=== PATIENT | female | born 1955 | race Caucasian/White ===

== ENCOUNTER 2018-06-26 13:08 | Emergency (ER) | payer MEDICAID ==
[~2018-06-26] VITALS: Ht 149.9 cm; Wt 81.6 kg
[2018-06-26 13:26] VITALS: BP 137/71
[2018-06-26] MEDS: IBUPROFEN 400 MG TAB PO ONE (14:47)
[2018-06-26 15:06] VITALS: BP 137/60
== END 2018-06-26 15:10 | disposition home or self-care (01) ==
LOC: MED 13:08
DX: S16.1XXA Strain of muscle, fascia and tendon at neck level, initial encounter (principal); S39.012A Strain of muscle, fascia and tendon of lower back, initial encounter; F41.9 Anxiety disorder, unspecified; Z98.51 Tubal ligation status; V43.62XA Car passenger injured in collision with other type car in traffic accident, initial encounter; Y93.19 Activity, other involving water and watercraft; Y92.411 Interstate highway as the place of occurrence of the external cause; Y99.8 Other external cause status
CPT/HCPCS: 82948; 99284

== ENCOUNTER 2018-08-02 15:44 | Emergency (ER) | payer MEDICAID ==
[~2018-08-02] VITALS: Ht 149.9 cm; Wt 53.1 kg
[2018-08-02 16:00] VITALS: BP 179/71
--- NOTE | 2018-08-02 16:08 | NUR ---
PT AMBULATES TO BED 2, REPORT GIVEN TO FLACA MURILLO
--- NOTE | 2018-08-02 16:11 | NUR ---
62 YO F BIB SELF W/ C/O ABDOMINAL PAIN WITH NAUSEA X 1 MONTH, BLACK STOOL X 3 WKS; DENIES V/D. BOWEL SOUNDS ACTIVE X 4, ABD SOFT, NON-TENDER. AAOX4, GCS 15, CMS INTACT, RR EVEN AND UNLABORED, LUNGS BL CLEAR. AMBULATORY W/ STEADY GAIT. ER MD NOTIFIED OF PT STATUS. PT NEEDS MET. SAFETY PRECAUTIONS IN PLACE. WILL CONTINUE TO MONITOR.
--- NOTE | 2018-08-02 16:18 | NUR ---
Patient being evaluated by physician at bedside.
--- NOTE | 2018-08-02 16:19 | NUR ---
Female Park Maintenance Technician SMITH THAYER accompanied DR. AMEZCUA FOR female patient for Rectal Exam.
[2018-08-02 17:07] LABS: BASOPHILS % (AUTO) 0.6 % (0.0-2.0); EOSINOPHILS # (AUTO) 0.1 K/uL (0-0.4); HEMATOCRIT 39.5 % (36-48); HEMOGLOBIN 12.8 g/dL (12.0-16.0); LYMPHOCYTES # (AUTO) 2.3 K/uL (2.5-16.5); LYMPHOCYTES % (AUTO) 40.2 % (20.5-51.1); MEAN CORPUSCULAR HEMOGLOBIN 30 pg (27-31); MEAN CORPUSCULAR HGB CONC 32 g/dL (33-37); MEAN CORPUSCULAR VOLUME 91.6 fL (80-94); MONOCYTES # (AUTO) 0.7 K/uL (0.8-1.0); MONOCYTES % (AUTO) 12.8 % (1.7-9.3); NEUTROPHILS # (AUTO) 2.6 K/uL (1.8-7.7); NEUTROPHILS % (AUTO) 44.4 % (42.2-75.2); PLATELET COUNT (AUTO) 221 K/uL (140-450); RED BLOOD CELL COUNT(AUTO) 4.31 MIL/uL (4.20-5.40); RED CELL DISTRIBUTION WIDTH 13.5 % (11.6-13.7); WHITE BLOOD COUNT (AUTO) 5.8 K/uL (4.8-10.8)
[2018-08-02 17:50] LABS: ALBUMIN 3.9 g/dL (3.4-5.0); ANION GAP 16.9 (8-16); CARBON DIOXIDE 27.3 mmol/L (21-32); POTASSIUM 4.2 mmol/L (3.5-5.1); TOTAL BILIRUBIN 0.6 mg/dL (0.0-1.0)
[2018-08-02 18:12] VITALS: BP 165/75
[2018-08-02 18:21] LABS: PROTHROMBIN TIME 10.2 secs (10.8-13.4)
== END 2018-08-02 18:15 | disposition home or self-care (01) ==
LOC: MED 15:44
DX: R10.84 Generalized abdominal pain (principal); R11.0 Nausea; R42 Dizziness and giddiness; E11.9 Type 2 diabetes mellitus without complications; I10 Essential (primary) hypertension
CPT/HCPCS: 36415; 80053; 81002; 82948; 83690; 85025; 85610; 85730; 86886; 86900; 86901; 93005; 99285

== ENCOUNTER 2018-08-13 22:46 | Emergency (ER) | payer MEDICAID ==
[~2018-08-13] VITALS: Ht 144.8 cm; Wt 52.6 kg
[2018-08-13 22:50] VITALS: BP 133/68
[2018-08-14] MEDS ORDERED: ASPIRIN 325 MG TAB PO ONE (00:05)
[2018-08-14] MEDS ORDERED: ACETAMINOPHEN EXTRA STRENGTH 500 MG TAB PO ONE (00:05)
[2018-08-14 00:28] LABS: BASOPHILS % (AUTO) 0.6 % (0.0-2.0); EOSINOPHILS # (AUTO) 0.1 K/uL (0-0.4); EOSINOPHILS % (AUTO) 1.8 % (0.0-4.0); HEMATOCRIT 40.4 % (36-48); HEMOGLOBIN 13.3 g/dL (12.0-16.0); LYMPHOCYTES # (AUTO) 2.5 K/uL (2.5-16.5); LYMPHOCYTES % (AUTO) 35.4 % (20.5-51.1); MEAN CORPUSCULAR HEMOGLOBIN 30 pg (27-31); MEAN CORPUSCULAR HGB CONC 33 g/dL (33-37); MEAN CORPUSCULAR VOLUME 90.9 fL (80-94); MONOCYTES # (AUTO) 0.6 K/uL (0.8-1.0); NEUTROPHILS # (AUTO) 3.8 K/uL (1.8-7.7); NEUTROPHILS % (AUTO) 54.2 % (42.2-75.2); PLATELET COUNT (AUTO) 238 K/uL (140-450); RED BLOOD CELL COUNT(AUTO) 4.44 MIL/uL (4.20-5.40); RED CELL DISTRIBUTION WIDTH 13.4 % (11.6-13.7); WHITE BLOOD COUNT (AUTO) 7.1 K/uL (4.8-10.8)
[2018-08-14 00:47] LABS: ALBUMIN 3.9 g/dL (3.4-5.0); ANION GAP 13.5 (8-16); CARBON DIOXIDE 27.7 mmol/L (21-32); CREATININE 0.8 mg/dL (0.6-1.3); POTASSIUM 4.2 mmol/L (3.5-5.1); TOTAL BILIRUBIN 0.3 mg/dL (0.0-1.0)
[2018-08-14 02:27] VITALS: BP 132/58
== END 2018-08-14 02:26 | disposition home or self-care (01) ==
LOC: MED 22:46
DX: R51 Headache (principal); R07.9 Chest pain, unspecified; E11.9 Type 2 diabetes mellitus without complications; I10 Essential (primary) hypertension
CPT/HCPCS: 36415; 71045; 80053; 82550; 82553; 83690; 84484; 85025; 93005; 99285; Q0092

== ENCOUNTER 2019-09-24 01:17 | Observation (INO) | payer MEDICAID ==
[~2019-09-24] VITALS: Ht 149.9 cm; Wt 54.9 kg
[2019-09-24 01:21] VITALS: BP 172/72
--- NOTE | 2019-09-24 01:21 | NUR ---
PT TAKEN TO BED 8
--- NOTE | 2019-09-24 01:25 | NUR ---
63 Y/O F PRESENTS TO ED WITH C/O CHEST PAIN X0700 ON 09/23. PT REPORTS HAVING THE APIN FOR MONTHS BUT WORSENED YESTERDAY. PT SELF MEDICATED WITH ASPRIN AT 1200 ON 09/23. 8/10 PRESSURE PAIN RADIATING TO HEAD. PAIN IS AGGRAVATED BY DEEP BREATHES WITH NO ALLEVIATING FACTORS. PT 100% ON RA. RR EVEN AND UNLABORED. PT ATTACHED TO MONITORING SYSTEM. BEDRAIL X1 UP. WILL CONTINUE TO MONITOR.
--- NOTE | 2019-09-24 01:43 | NUR ---
Dr. Merrill examining patient.
[2019-09-24] MEDS ORDERED: ASPIRIN 325 MG TAB PO ONE (01:45)
[2019-09-24] MEDS ORDERED: MORPHINE SULFATE 4 MG/ML SYR IVP ONE (01:45)
[2019-09-24] MEDS ORDERED: NITROGLYCERIN 2% 1 GM PKT TP ONE (01:45)
--- NOTE | 2019-09-24 01:53 | NUR ---
BLOOD DRAWN AND HANDED TO PHLEB.
--- NOTE | 2019-09-24 02:00 | NUR ---
DR. IRIZARRY GAVE PERMISSION FOR CT TO BE COMPLETED WITHOUT LABORATORY RESULTS.
--- NOTE | 2019-09-24 02:04 | NUR ---
PT SIGNED CONSENT FOR CT WITH CONTRAST.
[2019-09-24 02:11] LABS: BASOPHILS # (AUTO) 0.1 K/uL (0.00-0.22); EOSINOPHILS # (AUTO) 0.1 K/uL (0-0.4); EOSINOPHILS % (AUTO) 1.4 % (0.0-4.0); HEMATOCRIT 40.2 % (36-48); HEMOGLOBIN 13.2 g/dL (12.0-16.0); LYMPHOCYTES % (AUTO) 26.4 % (20.5-51.1); MEAN CORPUSCULAR HEMOGLOBIN 30 pg (27-31); MEAN CORPUSCULAR HGB CONC 33 g/dL (33-37); MEAN CORPUSCULAR VOLUME 91.4 fL (80-94); MONOCYTES # (AUTO) 0.6 K/uL (0.8-1.0); MONOCYTES % (AUTO) 7.4 % (1.7-9.3); NEUTROPHILS # (AUTO) 4.8 K/uL (1.8-7.7); NEUTROPHILS % (AUTO) 62.8 % (42.2-75.2); PLATELET COUNT (AUTO) 271 K/uL (140-450); RED CELL DISTRIBUTION WIDTH 13.3 % (11.6-13.7); WHITE BLOOD COUNT (AUTO) 7.6 K/uL (4.8-10.8)
[2019-09-24 02:13] LABS: ANION GAP 13.1 (8-16); CARBON DIOXIDE 27.4 mmol/L (21-32); CREATININE 1.1 mg/dL (0.6-1.3); POTASSIUM 3.5 mmol/L (3.5-5.1)
[2019-09-24 02:17] LABS: CHOL/HDL RATIO 2.5 (1-4.5)
[2019-09-24 02:19] LABS: ALBUMIN 4.3 g/dL (3.4-5.0); TOTAL BILIRUBIN 0.3 mg/dL (0.0-1.0)
[2019-09-24 02:26] LABS: CREATINE KINASE MB 2.6 ng/mL (0-3.6)
--- NOTE | 2019-09-24 02:28 | NUR ---
FAMILY FRIEND AT BEDSIDE.
--- NOTE | 2019-09-24 03:02 | NUR ---
PT REPORTS DECREASED CHEST PAIN, 1/10.
--- NOTE | 2019-09-24 03:10 | NUR ---
PT BP AT 155/67, DR. IRIZARRY MADE AWARE.
--- NOTE | 2019-09-24 03:13 | NUR ---
PT TAKEN TO CT VIA WHEELCHAIR.
--- NOTE | 2019-09-24 03:20 | NUR ---
PT TAKEN TO CT
[2019-09-24] MEDS ORDERED: hydrALAZINE 20 MG/ML VIAL IVP ONE (03:25)
--- NOTE | 2019-09-24 03:49 | NUR ---
PT RETURN FROM CT
--- NOTE | 2019-09-24 04:10 | NUR ---
PT BP DECREASED TO 136/65 WTIH HR OF 82[address]. IRIZARRY NOTIFIED.
--- NOTE | 2019-09-24 04:40 | NUR ---
PT REPORTS RETURN OF CP AND FEELINGS OF NAUSEA. DR. IRIZARRY NOTIFIED.
[2019-09-24] MEDS ORDERED: ONDANSETRON 4 MG/2 ML VIAL IVP ONE (04:50)
[2019-09-24] MEDS ORDERED: GLIP5TER PO (05:15)
[2019-09-24] MEDS ORDERED: ASPI-1884 PO (05:15)
[2019-09-24] MEDS ORDERED: FENO134C2 PO ×2 (05:15)
[2019-09-24] MEDS ORDERED: [UNRECOGNIZED DRUG - CODE] PO (05:15)
[2019-09-24] MEDS ORDERED: SIMV10TA1 PO (05:15)
[2019-09-24] MEDS ORDERED: LISI-424 PO (05:15)
[2019-09-24] MEDS ORDERED: METF1000 PO (05:15)
--- NOTE | 2019-09-24 05:55 | NUR ---
PT SEEN WITH EYES CLOSED. VISIBLE CHEST RISE AND FALL NOTED. FAMILY AT BEDSIDE. WILL CONTINUE TO MONITOR.
[2019-09-24] MEDS ORDERED: hydrALAZINE 20 MG/ML VIAL IVP PRN (06:05)
[2019-09-24] MEDS ORDERED: DEXTROSE 50% 50 ML SYR IVP PRN (06:05)
[2019-09-24] MEDS ORDERED: MORPHINE SULFATE 4 MG/ML SYR IVP PRN (06:10)
[2019-09-24] MEDS ORDERED: ALBUTEROL 0.083% 2.5 MG/3 ML NEBU INH PRN (06:10)
[2019-09-24] MEDS ORDERED: HYDROcodone/APAP 5/325 MG 1 TAB TAB PO PRN (06:10)
[2019-09-24] MEDS ORDERED: ACETAMINOPHEN 325 MG TAB PO PRN (06:10)
[2019-09-24] MEDS ORDERED: ONDANSETRON 4 MG/2 ML VIAL IVP PRN (06:10)
--- NOTE | 2019-09-24 06:30 | NUR ---
RECEIVED REPORT FROM ED NURSE DIANA. PATIENT ALERT AND ORIENTED X4. NO APPARENT DISTRESS NOTED. WITH IV ON RIGHT AC 20G ON SALINE LOCK. ORIENTED TO ENVIRONMENT, HOSPITAL ROUTINE AND CALL LIGHT. REVIEWED PLAN OF CARE. VERBALIZED UNDERSTANDING. SAFETY MEASURES IN PLACE. BED ON LOW POSITION. V/S:108/55, 71/ 97.6, 95% AND 18. WILL CONTINUE TO MONITOR. Addendum: 09/24/19 at 0737 by Gaurav Figueroa RN WILL ENDORSE TO AM SHIFT NURSE FOR CONTINUITY OF CARE.
--- NOTE | 2019-09-24 06:35 | NUR ---
Patient will be admitted to care of Dr. Beckman. Admited to [facility]. Will go to room 125A. Belongings list completed. VSS at time of transport. Report to FLACA Nolasco. Transfer of care at this time.
--- NOTE | 2019-09-24 07:10 | NUR ---
RECEIVED REPORT FROM NIGHT NURSE. PT IS IN STABLE CONDITION. PT AWAKE AND ALERT, GERMAN SPEAKING. WILL REVIEW ADMIT ORDERS.
[2019-09-24 07:30] VITALS: BP 112/49
[2019-09-24] MEDS: BLOOD GLUCOSE MONITORING 1 DEV DEV FS SCH ×4 (07:55→20:50)
--- NOTE | 2019-09-24 08:30 | NUR ---
PATIENT AMBULATED TO THE RESTROOM WITH STEADY GAIT.
[2019-09-24] MEDS: glipiZIDE ER 5 MG TABER PO SCH (09:00)
[2019-09-24] MEDS ORDERED: NIACIN 500 MG TAB PO SCH (09:00)
[2019-09-24] MEDS: INSULIN LISPRO SLIDING SCALE 100 UNITS/ML VIAL SUBQ PRN ×2 (09:09→20:53)
[2019-09-24] MEDS: FENOFIBRATE 48 MG TAB PO SCH (09:11)
--- NOTE | 2019-09-24 09:55 | NUR ---
PAGED DR. HODGES IN REGARDS TO PATIENT COMPLAINING OF BURNING AND ITCHING AT THIS TIME. AWAITING FOR CALL BACK.
[2019-09-24 10:00] VITALS: BP 135/59
--- NOTE | 2019-09-24 10:00 | NUR ---
DR. HODGES CALL BACK NOTIFIED HIM OF PT COMPLAINTS OF BURNING AND ITCHING. ALSO THAT PATIENT RECEIVED NIACIN 1,000MG ORDERED. RECEIVED ORDER TO DC NIACIN AND GIVE BENADRYL 50MG PO Q6H PRN. PT VS IS STABLE. VS 135/59, 65, 98.1, 100% RA, RESP 16. WILL MONITOR PATIENT.
[2019-09-24] MEDS ORDERED: diphenhydrAMINE 50 MG CAP PO PRN (10:05)
[2019-09-24] MEDS ORDERED: diphenhydrAMINE 50 MG CAP PO ONE (10:28)
[2019-09-24 12:00] VITALS: BP 103/45
--- NOTE | 2019-09-24 12:00 | NUR ---
PT IN BED, SLEEPING COMFORTABLY. PT EASILY AROUSABLE, AWAKE AND VERBALLY RESPONSIVE. RESPIRATION EVEN AND UNLABORED. NO S/S OF DISTRESS NOTED. CALL LIGHT WITHIN REACH.
--- NOTE | 2019-09-24 13:59 | NUR ---
PATIENT IS IN BED ASLEEP, EASILY AROUSABLE. PATIENT DENIES SOB OR PAIN AT THIS TIME. NO S/S OF DISTRESS NOTED. CALL LIGHT WITHIN REACH.
[2019-09-24 16:00] VITALS: BP 95/49
--- NOTE | 2019-09-24 16:00 | NUR ---
PATIENT IS IN BED ASLEEP, EASILY AROUSABLE. ASSESSED PATIENT AND VITAL SIGNS. PATIENT DENIES SOB OR PAIN AT THIS TIME. NO S/S OF DISTRESS NOTED. SAFETY MEASURES IN PLACE. IV INTACT AND PATENT TO RIGHT AC 20G SALINE LOCK. CALL LIGHT WITHIN REACH.
--- NOTE | 2019-09-24 17:42 | NUR ---
PATIENT IS SITTING UP EATING DINNER. DENIES ANY PAIN OR DISCOMFORT AT THIS TIME. CALL LIGHT WITHIN REACH. IV INTACT AND PATENT TO RIGHT AC SALINE LOCK.
--- NOTE | 2019-09-24 18:43 | NUR ---
PT IN STABLE CONDITION. WILL ENDORSE TO NIGHT NURSE FOR CONTINUITY OF CARE.
--- NOTE | 2019-09-24 19:14 | NUR ---
BEDSIDE REPORT GIVEN TO NIGHT NURSE. PATIENT IS IN STABLE CONDITION.
--- NOTE | 2019-09-24 19:20 | NUR ---
RECEIVED FROM AM RN IN BED SLEEPING. WOKE UP EASILY WHEN CALLED BY NAME. CARE PLANS FOR THE NIGHT DISCUSSED WITH HER AND CALL LIGHT BESIDE HER FOR EASY ACCESS AND ENCOURAGED TO USE IT FOR ANY HELP SHE MAY NEED OR IF IN PAIN. TELEMETRY MONITORING. DX. OF CHEST PAIN AND AND HTN. IVF SITE INTACT AND NO INFILTRATION NOTED.
[2019-09-24 20:39] VITALS: BP 98/50
[2019-09-24] MEDS: SIMVASTATIN 10 MG TAB PO SCH ×3 (20:50→23:53)
--- NOTE | 2019-09-24 21:04 | NUR ---
BLOOD SUGAR 151 PER FINGERSTICK. REFUSED HUMALOG INSULIN 2 UNITS. NONE ADMINISTERED. A/O X 4.
--- NOTE | 2019-09-24 21:06 | NUR ---
PT. ALSO REFUSED SIMVASTATIN P.O. "NO" I AM ALLERGIC TO IT".
--- NOTE | 2019-09-24 23:45 | NUR ---
ABLE TO TALK WITH MD GONZALEZ CONTRACT LEAD FOR MD HODGES AND INFORM HIM ABOUT PT. REFUSING HUMALOG AND SIMVASTATIN. "OK" NO FURTHER ORDERS GIVEN BY .
[2019-09-25] VITALS: BP 92/50
--- NOTE | 2019-09-25 02:41 | NUR ---
SLEEPING AT THIS TIME. NO COMPLAINTS DONE.
[2019-09-25 04:00] VITALS: BP 112/50
[2019-09-25 06:12] LABS: BASOPHILS % (AUTO) 0.6 % (0.0-2.0); EOSINOPHILS # (AUTO) 0.2 K/uL (0-0.4); EOSINOPHILS % (AUTO) 3.5 % (0.0-4.0); HEMATOCRIT 35.4 % (36-48); HEMOGLOBIN 11.7 g/dL (12.0-16.0); LYMPHOCYTES # (AUTO) 1.8 K/uL (2.5-16.5); MEAN CORPUSCULAR HEMOGLOBIN 30 pg (27-31); MEAN CORPUSCULAR HGB CONC 33 g/dL (33-37); MEAN CORPUSCULAR VOLUME 91.9 fL (80-94); MONOCYTES # (AUTO) 0.2 K/uL (0.8-1.0); MONOCYTES % (AUTO) 5.1 % (1.7-9.3); NEUTROPHILS # (AUTO) 2.2 K/uL (1.8-7.7); NEUTROPHILS % (AUTO) 49.8 % (42.2-75.2); PLATELET COUNT (AUTO) 241 K/uL (140-450); RED BLOOD CELL COUNT(AUTO) 3.85 MIL/uL (4.20-5.40); RED CELL DISTRIBUTION WIDTH 13.4 % (11.6-13.7); WHITE BLOOD COUNT (AUTO) 4.3 K/uL (4.8-10.8)
[2019-09-25] MEDS: BLOOD GLUCOSE MONITORING 1 DEV DEV FS SCH ×3 (06:20→17:15)
--- NOTE | 2019-09-25 06:25 | NUR ---
SLEPT WELL THIS SHIFT. BLOOD SUGAR CHECK PER FINGER STICK IS 89. NO INSULIN ADMINISTERED. ABLE TO VERBALIZE NEEDS WELL IN [place]. CALL LIGHT WITH IN REACH . ENCOURAGED TO CALL FOR A [place] HELP SHE MAY NEED OR IF IN PAIN. ROM X 4. A/O X 4. TELEMETRY MONITORING. NO CHEST PAIN COMPLAINT DONE THIS SHIFT.
[2019-09-25 06:36] LABS: ANION GAP 13.3 (8-16); CARBON DIOXIDE 27.3 mmol/L (21-32); CREATININE 0.8 mg/dL (0.6-1.3); POTASSIUM 3.6 mmol/L (3.5-5.1)
[2019-09-25 06:38] LABS: MAGNESIUM 1.7 mg/dL (1.8-2.4); PHOSPHORUS 3.6 mg/dL (2.5-4.9)
--- NOTE | 2019-09-25 07:10 | NUR ---
GIVEN BEDSIDE REPORT FROM FOREST PRODUCTS GATHERER NURSE. PT WAS RESTING IN BED, EASILY AROUSABLE. PT IS AAOX4. SKIN IS INTACT, IV IS CLEAN, INTACT. BREATHING IS EVEN AND UNLABORED, PT IS ON RA. NO SIGNS OF DISTRESS NOTED AT THIS TIME. DENIES PAIN. TELE MONITOR ATTACHED. SAFETY MEASURES ASSESSED, BED IN LOW POSITION AND CALL LIGHT WITHIN REACH. EDUCATED PT TO USE CALL LIGHT FOR ANY ASSISTANCE. PT VERBALIZED UNDERSTANDING.
[2019-09-25 08:00] VITALS: BP 109/62
[2019-09-25] MEDS: glipiZIDE ER 5 MG TABER PO SCH (08:11)
[2019-09-25] MEDS: FENOFIBRATE 48 MG TAB PO SCH (08:14)
--- NOTE | 2019-09-25 08:54 | NUR ---
PATIENT HAS BEEN SCREENED AND CATEGORIZED HIGH NUTRITION RISK. PATIENT WILL BE SEEN WITHIN 5-7 DAYS OF ADMISSION. 09/29/19-10/01/[address]
--- NOTE | 2019-09-25 08:59 | NUR ---
PATIENT HAS BEEN SCREENED AND CATEGORIZED LOW NUTRITION RISK. PATIENT WILL BE SEEN WITHIN 5-7 DAYS OF ADMISSION. 09/29/19-10/01/[address] DISREGARD PREVIOUS NOTE. INCORRECT PRIORITIZATION
[2019-09-25] MEDS ORDERED: ASPIRIN 81 MG TAB.CHEW PO SCH (09:00)
[2019-09-25] MEDS ORDERED: LISINOPRIL 10 MG TAB PO SCH (09:00)
--- NOTE | 2019-09-25 09:05 | NUR ---
PT RESTING IN BED. NO SIGNS OF DISTRESS NOTED AT THIS TIME. BREATHING IS EVEN AND UNLABORED. TELE MONITOR ATTACHED. BED IN LOW POSITION AND CALL LIGHT WITHIN REACH. REMINDED PT TO USE CALL LIGHT FOR ANY ASSISTANCE. WILL CONTINUE TO MONITOR.
--- NOTE | 2019-09-25 10:30 | NUR ---
DISCHARGE PLANNIN63 YEAR OLD FEMALE PATIENT FROM HOME, WHO CAME IN DUE TO CHEST PAIN. PAST MEDICAL AND SURGICAL HISTORY INCLUDE HTN, HYPERLIPIDEMIA, DM, C SECTION AND TUBAL LIGATION. CURRENT MEDS INCLUDE WBC 4.3, H/H 11.7/35.4 AND MAG 1.7. [address] ANGIO CHEST SHOWED NO PE AND ACUTE CARDIOPULMONARY DISEASE. NO CONSULTS AT THIS TIME. DC PLAN TO GO BACK HOME WHEN STABLE. Addendum: 09/25/19 at 1445 by Camille Jimenez CM RECEIVED AN ORDER FOR HOME HEALTH FOR HOME SAFETY EVAL AND BP MONITORING. CONTACTED [facility] AT [phone] OPT 2, ABLE TO SPEAK TO REGARDING HOME HEALTH ORDER. SHE STATED THE CM IN CHARGE IS [employer] [phone]. CONTACTED THE PROVIDED NUMBER, PER [employer] TO GO AHEAD AND FAX OVER THE ORDER TO [phone]. SHE ALSO STATED THEY [facility] . SHE ALSO STATED SHE SPOKE WITH THE PATIENT AND TO [facility] ALREADY. PRIMARY RN JOSE R MADE AWARE. Addendum: 09/25/19 at 1607 by Camille Jimenez CM CONTACTED [facility] AT [phone], ABLE TO SPEAK TO [employer] PRESS TENDER REGARDING REFERRAL. SHE STATED SHE DID NOT RECEIVE ANY REFERRAL FROM THE INSURANCE. SHE REQUESTED TO FAX REFERRAL TO [phone] IN CASE INSURANCE IS NOT ABLE TO. SHE ALSO CONFIRMED THAT THEY ARE CONTRACTED WITH [facility]. [facility] WILL FOLLOW UP. Addendum: 09/25/19 at 1612 by Camille Jimenez CM CONTACTED [facility] AT [phone], ABLE TO SPEAK TO RONEL TO CONFIRM ACCEPTANCE OF THE ORDER SENT. SHE STATED SHE CANNOT CONFIRM AT THIS TIME AND TO CALL BACK TOMORROW MORNING TO FOLLOW UP. Addendum: 09/26/19 at 0830 by Camille Jimenez CM DISREGARD LAST ENTRY, CHARTED ON WRONG PATIENT. Addendum: 09/26/19 at 1104 by Camille Jimenez CM PER [employer] OF [facility], SHE WILL FOLLOW UP WITH [facility]. SHE ALSO STATED SHE REACHED OUT TO [employer] YESTERDAY AND THEY DECLINE THE PATIENT DUE TO PATIENT IS NOT SENIOR. SHE SAID SHE WILL REACH OUT TO THEM AGAIN TODAY. Addendum: 09/29/19 at 1055 by Camille Jimenez CM CONTACTED [facility], NOT IN TODAY. ABLE TO SPEAK TO [facility]RY[facility] HAILE CHIEF OPERATOR SYNTHESIS TODAY. SHE STATED PATIENT DOES NOT QUALIFY FOR HOME HEALTH, PATIENT IS NOT HOMEBOUND, PATIENT IS WORKING.
--- NOTE | 2019-09-25 11:10 | NUR ---
PT LAYING IN BED. NO SIGNS OF DISTRESS NOTED. BREATHING IS EVEN AND UNLABORED. BED IN LOW POSITION AND CALL LIGHT WITHIN REACH. WILL CONTINUE TO MONITOR.
--- NOTE | 2019-09-25 11:41 | NUR ---
Metalworking Specialist Note: Patient requested to receive communion from [facility]. Patient speaks Portuguese. I called [facility] , recording states office is closed from 09/23/19-10/01/19. I called [facility] , no answer. [facility] called [facility] , recording states office is closed from 09/22/19-10/01/19. I called and spoke with Courtney from [facility] ([place], [place]) , Courtney requested to speak with patient. Per Courtney, she speaks Portuguese. I provided patient with the phone number of [facility] and explained to her Courtney would like to speak with her, patient's RN Terry made aware.
[2019-09-25 12:00] VITALS: BP 141/63
[2019-09-25] MEDS ORDERED: MAG SULF 2000 MG/WATER PREMIX 50 ML IV SCH (12:00)
--- NOTE | 2019-09-25 12:15 | NUR ---
MAGNESIUM SULFATE 2 GRAM IN 50 ML STERILE WATER ADMINISTERED THROUGH IV AT 25 ML/HR.
--- NOTE | 2019-09-25 14:15 | NUR ---
MAGNESIUM SULFATE INFUSION FINISHED AT THIS TIME. Addendum: 09/25/19 at 1853 by Melonie Mooney RN RN 50 ML INFUSED
[2019-09-25] MEDS ORDERED: NAPROXEN 500 MG TAB PO SCH (14:35)
[2019-09-25] MEDS ORDERED: IBUP-2213 PO (14:38)
[2019-09-25] MEDS ORDERED: LISI10TA11 PO (14:38)
[2019-09-25] MEDS ORDERED: [UNRECOGNIZED DRUG - CODE] PO (14:38)
[2019-09-25] MEDS ORDERED: HYDR-5122 PO (14:39)
[2019-09-25] MEDS ORDERED: FAMO-90 PO (14:44)
[2019-09-25] MEDS ORDERED: IBUPROFEN 600 MG TAB PO SCH ×2 (14:44→21:00)
[2019-09-25 15:41] VITALS: BP 141/63
[2019-09-25 16:00] VITALS: BP 124/52
--- NOTE | 2019-09-25 17:40 | NUR ---
DISCHARGE INSTRUCTIONS GIVEN IN YI BY MEHNAZ THAYER. MEDICATION TEACHING DONE. PT VERBALIZED UNDERSTANDING. RX PROVIDED. PT IS AWARE TO F/U WITH PCP WITHIN 2 WKS. LEFT A MESSAGE FOR JOSELYN RICE TO F/U ON HOME HEALTH FOR BP CHECK. PT IS WAITING FOR FAMILY TO FOREST RANGER TECHNICIAN.
--- NOTE | 2019-09-25 19:11 | NUR ---
GAVE BEDSIDE REPORT TO HEALTH EDUCATION TEACHER RN. PT IN STABLE CONDITION.
== END 2019-09-25 18:20 | disposition home health service (06) ==
LOC: MED 01:17 → MMU 06:10
PROVIDERS: ADMIT Internal Medicine Pulmonary Disease; ATTEND Internal Medicine Pulmonary Disease
DX: R07.89 Other chest pain (principal); I16.0 Hypertensive urgency; E11.9 Type 2 diabetes mellitus without complications; E78.5 Hyperlipidemia, unspecified; Z79.899 Other long term (current) drug therapy
CPT/HCPCS: 36415; 71045; 71275; 80048; 80053; 80061; 82550; 82553; 82948; 83036; 83735; 83880; 84100; 84484; 85025; 85379; 85651; 86140; 87081; 93005; 93307; 94760; 96365; 96366; 96372; 96375; 99285; G0378; J0360; J2270; J2405; J3475; Q0092; Q0163; Q9967; 96374

== ENCOUNTER 2020-09-28 10:27 | Emergency (ER) | payer MEDICAID ==
[~2020-09-28] VITALS: Ht 149.9 cm; Wt 77.1 kg
[~2020-09-28 10:27] MED LIST: ASPI-1884 PO; FAMO-90 PO; FENO134C2 PO; GLIP5TER PO; HYDR-5122 PO; IBUP-2213 PO; LISI10TA11 PO; METF1000 PO; SIMV10TA1 PO; [UNRECOGNIZED DRUG - CODE] PO
[2020-09-28 10:37] VITALS: BP 158/86
--- NOTE | 2020-09-28 10:41 | NUR ---
C/O FEVER, HEADACHE 4/10 X 4 DAYS. ORAL TEMP 99.2 AT THIS TIME. TOOK TYLENOL AT 8 AM TODAY. PMH:DM, HTN, ASTHMA
--- NOTE | 2020-09-28 10:42 | NUR ---
TENT2
[2020-09-28 12:29] LABS: BASOPHILS % (AUTO) 0.6 % (0.0-2.0); HEMATOCRIT 42.4 % (36-48); HEMOGLOBIN 14.4 g/dL (12.0-16.0); LYMPHOCYTES % (AUTO) 17.5 % (20.5-51.1); MEAN CORPUSCULAR HEMOGLOBIN 31 pg (27-31); MEAN CORPUSCULAR HGB CONC 34 g/dL (33-37); MEAN CORPUSCULAR VOLUME 90.2 fL (80-94); MONOCYTES # (AUTO) 0.5 K/uL (0.8-1.0); MONOCYTES % (AUTO) 9.4 % (1.7-9.3); NEUTROPHILS % (AUTO) 72.5 % (42.2-75.2); PLATELET COUNT (AUTO) 188 K/uL (140-450); RED CELL DISTRIBUTION WIDTH 13.3 % (11.6-13.7); WHITE BLOOD COUNT (AUTO) 5.5 K/uL (4.8-10.8)
[2020-09-28 12:47] LABS: ALBUMIN 4.1 g/dL (3.4-5.0); CARBON DIOXIDE 24.3 mmol/L (21-32); CREATININE 0.6 mg/dL (0.6-1.3); POTASSIUM 4.3 mmol/L (3.5-5.1); TOTAL BILIRUBIN 0.3 mg/dL (0.0-1.0)
[2020-09-28 13:32] VITALS: BP 140/70
--- NOTE | 2020-09-28 13:32 | NUR ---
PT REQUESTING A COVID TEST PRIOR TO DISCHARGE. DR. DANGELO MADE AWARE.
--- NOTE | 2020-09-28 13:32 | NUR ---
Patient discharged with v/s stable. Written and verbal after care instructions given and explained. Patient alert, oriented and verbalized understanding of instructions. Ambulatory with steady gait. All questions addressed prior to discharge. ID band removed. Patient advised to follow up with PMD. Rx of NORCO, BENTYL, AUGMENTIN given. Patient educated on indication of medication including possible reaction and side effects. Opportunity to ask questions provided and answered.
--- NOTE | 2020-09-28 13:35 | NUR ---
NOVEL SWAB COLLECTED AND SENT TO LAB.
--- NOTE | 2020-09-30 09:14 | NUR ---
Covid results received from lab. Results = Positive. Hard copy requested from lab and placed in infection controls mailbox.
== END 2020-09-28 13:32 | disposition home or self-care (01) ==
LOC: MED 10:27
DX: K52.9 Noninfective gastroenteritis and colitis, unspecified (principal); Z20.828 Contact with and (suspected) exposure to other viral communicable diseases; J45.909 Unspecified asthma, uncomplicated; E11.9 Type 2 diabetes mellitus without complications; I10 Essential (primary) hypertension; Z98.890 Other specified postprocedural states; Z79.82 Long term (current) use of aspirin; Z79.899 Other long term (current) drug therapy
CPT/HCPCS: 36415; 74176; 80053; 85025; 99284; U0003

== ENCOUNTER 2021-03-03 17:25 | Emergency (ER) | payer MEDICAID ==
[~2021-03-03] VITALS: Ht 147.3 cm; Wt 53.1 kg
[~2021-03-03 17:25] MED LIST changes: -LISI10TA11 PO; +LISI10TA30 PO
[2021-03-03 17:29] VITALS: BP 143/83
--- NOTE | 2021-03-03 17:33 | NUR ---
PATIENT AMBUALTED TO BED 2.
--- NOTE | 2021-03-03 17:42 | NUR ---
PATIENT PRESENTS TO ED WITH LLQ QUADRANT PAIN RADIATING TO LEFT FLANK . PT STATES THIS HAS BEEN OCCURRING FOR 2 WEEKS. . DENIES N/V/D; SKIN IS PINK/WARM/DRY; AAOX4 WITH EVEN AND STEADY GAIT; LUNGS CLEAR BL; HR EVEN AND REGULAR; PT DENIES ANY FEVER, CP, SOB, OR COUGH AT THIS TIME; PATIENT STATES PAIN OF 710 AT THIS TIME; VSS; PATIENT POSITIONED FOR COMFORT; HOB ELEVATED; BEDRAILS UP X2; BED DOWN. ER MD MADE AWARE OF PT STATUS.
--- NOTE | 2021-03-03 18:27 | NUR ---
PT TAKEN TO CT SCAN AT THIS TIME
[2021-03-03 18:43] LABS: BASOPHILS # (AUTO) 0.1 K/uL (0.00-0.22); EOSINOPHILS # (AUTO) 0.1 K/uL (0-0.4); EOSINOPHILS % (AUTO) 1.1 % (0.0-4.0); HEMATOCRIT 38.7 % (36-48); HEMOGLOBIN 13.1 g/dL (12.0-16.0); LYMPHOCYTES # (AUTO) 2.6 K/uL (2.5-16.5); LYMPHOCYTES % (AUTO) 36.5 % (20.5-51.1); MEAN CORPUSCULAR HEMOGLOBIN 31 pg (27-31); MEAN CORPUSCULAR HGB CONC 34 g/dL (33-37); MEAN CORPUSCULAR VOLUME 90.3 fL (80-94); MONOCYTES # (AUTO) 0.5 K/uL (0.8-1.0); MONOCYTES % (AUTO) 7.2 % (1.7-9.3); NEUTROPHILS # (AUTO) 3.9 K/uL (1.8-7.7); NEUTROPHILS % (AUTO) 54.2 % (42.2-75.2); PLATELET COUNT (AUTO) 200 K/uL (140-450); RED BLOOD CELL COUNT(AUTO) 4.28 MIL/uL (4.20-5.40); RED CELL DISTRIBUTION WIDTH 13.2 % (11.6-13.7); WHITE BLOOD COUNT (AUTO) 7.1 K/uL (4.8-10.8)
[2021-03-03 18:44] LABS: APPEARANCE,URINE CLEAR (CLEAR); BILIRUBIN,URINE NEGATIVE (NEGATIVE); BLOOD, URINE NEGATIVE (NEGATIVE); COLOR,URINE YELLOW (YELLOW); LEUKOCYTE ESTERASE ,URINE NEGATIVE (NEGATIVE); NITRITE, URINE NEGATIVE (NEGATIVE); PH,URINE 5.5 (5.0-9.0); UGLUCOSE NEGATIVE (NEGATIVE)
[2021-03-03] MEDS ORDERED: CIPR500T4 PO (18:47)
[2021-03-03] MEDS ORDERED: METR500T1 PO (18:47)
[2021-03-03 18:57] LABS: ALBUMIN 3.8 g/dL (3.4-5.0); ANION GAP 16.4 (8-16); CARBON DIOXIDE 24.8 mmol/L (21-32); CREATININE 0.9 mg/dL (0.6-1.3); POTASSIUM 4.2 mmol/L (3.5-5.1); TOTAL BILIRUBIN 0.4 mg/dL (0.0-1.0)
[2021-03-03 19:08] VITALS: BP 143/83
--- NOTE | 2021-03-03 19:09 | NUR ---
Patient discharged with v/s stable. Written and verbal after care instructions given and explained. Patient alert, oriented and verbalized understanding of instructions. Ambulatory with steady gait. All questions addressed prior to discharge. ID band removed. Patient advised to follow up with PMD. Rx of CIPRO, FLAGYL given. Patient educated on indication of medication including possible reaction and side effects. Opportunity to ask questions provided and answered.
== END 2021-03-03 19:09 | disposition home or self-care (01) ==
LOC: MED 17:25
DX: K57.92 Diverticulitis of intestine, part unspecified, without perforation or abscess without bleeding (principal); J45.909 Unspecified asthma, uncomplicated; E11.9 Type 2 diabetes mellitus without complications; I10 Essential (primary) hypertension; Z98.890 Other specified postprocedural states; Z79.84 Long term (current) use of oral hypoglycemic drugs; Z79.899 Other long term (current) drug therapy
CPT/HCPCS: 36415; 80053; 81003; 83690; 85025; 99284

== ENCOUNTER 2021-03-27 23:39 | Emergency (ER) | payer MEDICAID ==
[~2021-03-27] VITALS: Ht 149.9 cm; Wt 77.1 kg
[~2021-03-27 23:39] MED LIST changes: +CIPR500T4 PO; +METR500T1 PO
[2021-03-27 23:44] VITALS: BP 127/68
--- NOTE | 2021-03-27 23:44 | NUR ---
TO BED AMBULATORY
--- NOTE | 2021-03-27 23:50 | NUR ---
65/F BIB SELF. CC: CHEST PAIN THAT STARTED 2 HRS AGO. NON-RADIATING, NO CHEST PAIN AT THIS TIME, LOWER ABD PAIN, 4/10. PAST MED HX: CS, DIVERTICULITIS, HTN, DM, HLD, ARTHRITIS, NKA, SAFETY MEASURES IN PLACE, WILL MONITOR.
--- NOTE | 2021-03-28 00:03 | NUR ---
Dr. Hester examining patient.
[2021-03-28] MEDS ORDERED: PANTOPRAZOLE 40 MG INJ VIAL IVP ONE (00:25)
[2021-03-28] MEDS ORDERED: MORPHINE SULFATE 2 MG/ML SYR IVP ONE (00:25)
[2021-03-28] MEDS ORDERED: NACL 0.9% 1,000 ML IV ONE (00:25)
[2021-03-28] MEDS ORDERED: ASPIRIN 325 MG TAB PO ONE (00:25)
[2021-03-28] MEDS ORDERED: ONDANSETRON 4 MG/2 ML VIAL IVP ONE (00:25)
[2021-03-28 00:49] LABS: BASOPHILS # (AUTO) 0.1 K/uL (0.00-0.22); BASOPHILS % (AUTO) 1.2 % (0.0-2.0); EOSINOPHILS # (AUTO) 0.1 K/uL (0-0.4); EOSINOPHILS % (AUTO) 1.3 % (0.0-4.0); HEMATOCRIT 38.9 % (36-48); HEMOGLOBIN 13.1 g/dL (12.0-16.0); LYMPHOCYTES # (AUTO) 2.6 K/uL (2.5-16.5); LYMPHOCYTES % (AUTO) 40.3 % (20.5-51.1); MEAN CORPUSCULAR HEMOGLOBIN 30 pg (27-31); MEAN CORPUSCULAR HGB CONC 34 g/dL (33-37); MEAN CORPUSCULAR VOLUME 90.3 fL (80-94); MONOCYTES # (AUTO) 0.6 K/uL (0.8-1.0); MONOCYTES % (AUTO) 9.1 % (1.7-9.3); NEUTROPHILS # (AUTO) 3.1 K/uL (1.8-7.7); NEUTROPHILS % (AUTO) 48.1 % (42.2-75.2); PLATELET COUNT (AUTO) 293 K/uL (140-450); RED BLOOD CELL COUNT(AUTO) 4.31 MIL/uL (4.20-5.40); WHITE BLOOD COUNT (AUTO) 6.4 K/uL (4.8-10.8)
[2021-03-28 01:08] LABS: ALBUMIN 3.9 g/dL (3.4-5.0); ANION GAP 17.6 (8-16); CARBON DIOXIDE 25.3 mmol/L (21-32); CREATININE 0.7 mg/dL (0.6-1.3); POTASSIUM 3.9 mmol/L (3.5-5.1); TOTAL BILIRUBIN 0.8 mg/dL (0.0-1.0)
--- NOTE | 2021-03-28 01:25 | NUR ---
PT REFUSED OTHER MEDS, ONLY TOOK ASPIRIN. ER AWARE.
[2021-03-28] MEDS ORDERED: PANT40EC PO (02:35)
[2021-03-28] MEDS ORDERED: ACETAMINOPHEN EXTRA STRENGTH 500 MG TAB PO ONE (02:35)
[2021-03-28 02:52] VITALS: BP 127/68
--- NOTE | 2021-03-28 03:00 | NUR ---
Patient discharged with v/s stable. Written and verbal after care instructions given and explained. Patient alert, oriented and verbalized understanding of instructions. Ambulatory with steady gait. All questions addressed prior to discharge. ID band removed. Patient advised to follow up with PMD. Rx of PROTONIX given. Patient educated on indication of medication including possible reaction and side effects. Opportunity to ask questions provided and answered.
--- NOTE | 2021-03-29 19:31 | NUR ---
LATE ENTRTY- 0.9% NS BOLUS DISCONTINED AT 0210
== END 2021-03-28 03:00 | disposition home or self-care (01) ==
LOC: MED 23:39
DX: R07.2 Precordial pain (principal); R10.13 Epigastric pain; J45.909 Unspecified asthma, uncomplicated; E11.9 Type 2 diabetes mellitus without complications; I10 Essential (primary) hypertension; Z79.84 Long term (current) use of oral hypoglycemic drugs; Z79.82 Long term (current) use of aspirin; Z79.899 Other long term (current) drug therapy
CPT/HCPCS: 36415; 71250; 74176; 80053; 83605; 84484; 85025; 93005; 96360; 99285; J7030; C9113; J2270; J2405

== ENCOUNTER 2021-10-11 22:45 | Emergency (ER) | payer MEDICAID ==
[~2021-10-11] VITALS: Ht 149.9 cm; Wt 53.1 kg
[~2021-10-11 22:45] MED LIST changes: +ASPI-1749 PO; -ASPI-1884 PO; +PANT40EC PO
[2021-10-11 23:02] VITALS: BP 128/76
--- NOTE | 2021-10-11 23:05 | NUR ---
to lobby a/w bed ambulatory
[2021-10-12] MEDS ORDERED: CLON0.1T16 PO (00:41)
[2021-10-12] MEDS ORDERED: IBUPROFEN 400 MG TAB PO ONE (00:45)
--- NOTE | 2021-10-12 01:39 | NUR ---
medicated patient per MD orders.
--- NOTE | 2021-10-12 01:42 | NUR ---
moved patient to [facility]
[2021-10-12 01:49] VITALS: BP 120/59
--- NOTE | 2021-10-12 01:49 | NUR ---
Patient discharged with v/s stable. Written and verbal after care instructions given and explained. Patient alert, oriented and verbalized understanding of instructions. Ambulatory with steady gait. All questions addressed prior to discharge. ID band removed. Patient advised to follow up with PMD. Rx of catapress given. Patient educated on indication of medication including possible reaction and side effects. Opportunity to ask questions provided and answered.
== END 2021-10-12 01:49 | disposition home or self-care (01) ==
LOC: MED 22:45
DX: I10 Essential (primary) hypertension (principal); R51.9 Headache, unspecified; M79.602 Pain in left arm; E11.9 Type 2 diabetes mellitus without complications; J45.909 Unspecified asthma, uncomplicated; Z79.84 Long term (current) use of oral hypoglycemic drugs; Z79.899 Other long term (current) drug therapy; Z79.82 Long term (current) use of aspirin
CPT/HCPCS: 93005; 99283